=== PATIENT | female | born 1970 | race Caucasian/White ===

== ENCOUNTER 2021-05-10 15:33 | Emergency (ER) | payer OTHER, SELFPAY ==
[2021-05-10 15:40] VITALS: BP 116/68; PULSE 75; RESP 20; TEMP 36.4; O2SAT 100
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
[2021-05-10 15:58] VITALS: BP 116/68; PULSE 75; RESP 20; TEMP 36.4; O2SAT 100
== END 2021-05-10 16:05 | disposition home or self-care (01) ==
PROVIDERS: Emergency Provider Nurse Practitioner Family
DX: T24.231A Burn of second degree of right lower leg, initial encounter (principal); X16.XXXA Contact with hot heating appliances, radiators and pipes, initial encounter
CPT/HCPCS: 99213; G0463

== ENCOUNTER 2021-06-19 19:48 | Emergency (ER) | payer OTHER, SELFPAY ==
[2021-06-19 19:56] VITALS: BP 130/83; PULSE 110; RESP 14; TEMP 37.2; O2SAT 100
--- NOTE | 2021-06-19 20:09 | ED.URI ---
HPI - URI/Sore Throat General Chief Complaint: Upper Respiratory Infection Stated Complaint: Cough,Body Aches Time Seen by Provider: 06/19/21 19:57 Source: patient and RN notes reviewed Mode of arrival: ambulatory Limitations: no limitations History of Present Illness HPI Narrative: Patient presents today complaining of headache, body aches, cough, chest congestion, chills, subjective fever. Symptoms began last night. Denies nausea, vomiting, diarrhea, ear pain, sore throat. States she took a dose of ibuprofen without much relief. She has not received the COVID-19 vaccine. MD elicited complaint: cough Related Data Home Medications Medication Instructions Recorded Confirmed bupropion HCl 100 mg PO BID 05/10/21 05/10/21 ergocalciferol (vitamin D2) 1,250 mcg PO WEEKLY 05/10/21 05/10/21 famotidine 40 mg PO QPM 05/10/21 05/10/21 omeprazole 40 mg PO DAILY 05/10/21 05/10/21 sucralfate 10 ml PO QID 05/10/21 05/10/21 aripiprazole [Abilify Maintena] 400 mg IM MONTHLY 06/19/21 06/19/21 cyclobenzaprine 10 mg PO TID PRN 06/19/21 06/19/21 gabapentin 100 mg PO TID 06/19/21 06/19/21 Allergies Allergy/AdvReac Type Severity Reaction Status Date / Time adhesive tape Allergy Unknown Rash Verified 06/19/21 20:06 diphenhydramine AdvReac Mild Muscle Pain Verified 06/19/21 20:07 [From Benadryl] quetiapine [From Seroquel] AdvReac Mild Muscle Pain Verified 06/19/21 20:07 ziprasidone [From Geodon] AdvReac Mild Muscle Pain Verified 06/19/21 20:07 Review of Systems Review of Systems: CONSTITUTIONAL: + Body aches, chills, subjective fever EYES: Denies visual changes, redness, or discharge. ENT: Denies rhinorrhea, congestion, sore throat, or otalgia. CARDIOVASCULAR: Denies chest pain, palpitations, or edema. RESPIRATORY: Denies shortness of breath. + Cough, chest congestion GASTROINTESTINAL: Denies abdominal pain, nausea, vomiting, or diarrhea. GENITOURINARY: Denies dysuria or hematuria. SKIN: Denies rash, itching, or wounds. MUSCULOSKELETAL: Denies back pain, joint pain, or myalgia. NEUROLOGIC: Denies numbness, tingling, or weakness.+ Headache PSYCH: Denies depression or anxiety. [facility] Surgical History Surgical History (Updated 06/19/21 @ 20:12 by Margot Muse, [employer], ) H/O gastric bypass H/O lithotripsy History of cholecystectomy Social History Social History (Updated 06/19/21 @ 20:11 by Margot Muse, [facility], ) Smoking status: Current every day smoker Tobacco type: cigarettes and e-cigarettes/vaping Substance use: former Substance use type: amphetamines Exam Narrative: GENERAL: Mildly ill-appearing, well-nourished, and in no acute distress. HEAD: Normocephalic, atraumatic. EYES: EOMI. No redness or drainage. Conjunctivae normal. ENT: Mucous membranes pink and moist. Nares clear. No rhinorrhea. TMs normal bilaterally. Throat normal. Uvula midline. NECK: Normal AROM. Supple. No lymphadenopathy. CHEST: No respiratory distress. Clear to auscultation. HEART: Regular rate and rhythm. No murmur appreciated. Normal peripheral pulses. EXTREMITIES: Normal range of motion. No edema. SKIN: Warm, dry, no rash. Capillary refill normal. Normal skin turgor. NEURO: No focal deficits. Alert and oriented x3. Gait steady. PSYCH: Normal affect. No signs of depression or anxiety. Course Course Emergency Course: Offered to order patient COVID-19 test through the drive-through in [place]. She declined and would like to call her doctor to get a test through drive-through and [place]. Vital Signs Vital signs: Vital Signs Temperature 98.9 F 06/19/21 19:56 Pulse Rate 110 H 06/19/21 19:56 Respiratory Rate 14 06/19/21 19:56 Blood Pressure 130/83 06/19/21 19:56 Pulse Oximetry 100 06/19/21 19:56 Temperature 98.9 F 06/19/21 19:56 Pulse Rate 110 H 06/19/21 19:56 Respiratory Rate 14 06/19/21 19:56 Blood Pressure 130/83 06/19/21 19:56 Pulse Oximetry 100 06/19/21 19:56 Reviewed. Pt has
== END 2021-06-19 20:18 | disposition home or self-care (01) ==
PROVIDERS: Emergency Provider Nurse Practitioner
DX: J06.9 Acute upper respiratory infection, unspecified (principal); Z98.84 Bariatric surgery status; F17.200 Nicotine dependence, unspecified, uncomplicated
CPT/HCPCS: 99211; G0463

== ENCOUNTER 2022-02-10 15:17 | Emergency (ER) | payer OTHER, SELFPAY ==
[2022-02-10 15:21] VITALS: BP 146/97; PULSE 124; RESP 16; TEMP 37.3; O2SAT 99
--- NOTE | 2022-02-10 15:45 | ED.FEMALEGU ---
HPI - Female Genitourinary General Chief complaint: Urogenital-Female Stated complaint: poss uti Time Seen by Provider: 02/10/22 15:45 Source: patient Mode of arrival: ambulatory Limitations: no limitations History of Present Illness HPI Narrative: Ms. Kate is a 51-year-old female patient presenting to the clinic today with possible urinary tract infection. She reports that she has been having symptoms for approximately 1 week. She reports decreasing urine, dysuria, as well as foul odor. Denies any flank pain or lower abdominal pain. She denies any fever or chills. Related Data Home Medications Medication Instructions Recorded Confirmed famotidine 40 mg tablet 40 mg PO QPM 05/10/21 02/10/22 omeprazole 40 mg capsule,delayed 40 mg PO DAILY 05/10/21 02/10/22 release sucralfate 100 mg/mL oral 10 ml PO QID 05/10/21 02/10/22 suspension Allergies Allergy/AdvReac Type Severity Reaction Status Date / Time adhesive tape Allergy Unknown Rash Verified 02/10/22 15:36 diphenhydramine AdvReac Mild Muscle Pain Verified 02/10/22 15:36 [From Benadryl] quetiapine [From Seroquel] AdvReac Mild Muscle Pain Verified 02/10/22 15:36 ziprasidone [From Geodon] AdvReac Mild Muscle Pain Verified 02/10/22 15:36 Review of Systems Review of Systems: Pertinent positives per HPI. Patient denies any fever, chills, rash, headache, visual changes, dizziness, cough, runny nose, sore throat, shortness of breath, chest pain, palpitations, nausea, vomiting, diarrhea, constipation, abdominal pain. [facility] Surgical History Surgical History H/O gastric bypass H/O lithotripsy History of cholecystectomy Social History Social History Smoking status: Current every day smoker Tobacco type: cigarettes and e-cigarettes/vaping Substance use: former Substance use type: amphetamines Comments At the time of my signature, I reviewed and agree with the nursing past medical, surgical, social, and family history. There is no relevant family history pertinent to the patient complaint. Exam Narrative: General: Well-developed, well nourished, in no apparent distress. Head: Normocephalic, atraumatic. Cardio: Regular rate and rhythm, s1 and s2 normal, no murmur appreciated. Resp: Clear to auscultation bilaterally, no rhonchi, rales, wheezing or rubs. Abdomen: Soft, pliable, bowel sounds present in all quadrants, non-tender to palpation, no organomegly, no CVAT tenderness. Course Course Emergency Course: Portions of this record may have been created with voice recognition software. Level of Care: Express Care Visit Vital Signs Vital signs: Vital Signs Temperature 37.3 C 02/10/22 15:21 Pulse Rate 124 H 02/10/22 15:21 Respiratory Rate 16 02/10/22 15:21 Blood Pressure 146/97 H 02/10/22 15:21 Pulse Oximetry 99 02/10/22 15:21 Oxygen Delivery Room Air 02/10/22 15:21 Temperature 37.3 C 02/10/22 15:21 Pulse Rate 124 H 02/10/22 15:21 Respiratory Rate 16 02/10/22 15:21 Blood Pressure 146/97 H 02/10/22 15:21 Pulse Oximetry 99 02/10/22 15:21 Oxygen Delivery Room Air 02/10/22 15:21 Vital signs reviewed MDM - Female Genitourinary MDM Narrative Medical decision making narrative: At the time of visit patient is resting comfortably on the exam table. Her urinalysis shows leukocyte, protein, and nitrate positive. I will go ahead and treat the patient for acute cystitis and give her a prescription for some Macrobid. Supportive measures were discussed with the patient and she voiced understanding of discharge instructions and agrees with treatment plan. Differential Diagnosis Differential diagnosis: Likely urinary tract infection and cystitis Lab Data Labs: Urine Glucose Negative Reference Range: Negative Urine Bilirub
== END 2022-02-10 15:50 | disposition home or self-care (01) ==
PROVIDERS: Emergency Provider Nurse Practitioner Family
DX: N30.01 Acute cystitis with hematuria (principal); F17.210 Nicotine dependence, cigarettes, uncomplicated; F17.290 Nicotine dependence, other tobacco product, uncomplicated; Z98.84 Bariatric surgery status
CPT/HCPCS: 81003; 87086; 99213; G0463